=== PATIENT | male | born 1955 | race African-American/Black ===

== ENCOUNTER 2018-05-19 12:01 | Inpatient (IN) | payer MEDICARE, MEDICAID ==
[~2018-05-19] VITALS: Ht 185.4 cm; Wt 82.2 kg
[2018-05-19] MEDS ORDERED: SODIUM CHLORIDE 0.9% 1,000 ML IV ONE (12:19)
[2018-05-19] MEDS ORDERED: PANTOPRAZOLE SODIUM 40 MG/VIAL IV ONE (12:30)
[2018-05-19 13:42] LABS: MEAN CORPUSCULAR HEMOGLOBIN 28.5 pg (28.0-32.0); MEAN CORPUSCULAR VOLUME 89.6 fL (80.0-94.0); MEAN PLATELET VOLUME 9.2 fl (7.4-10.4); PLATELET 323 x1000/uL (130-400); RED BLOOD CELL COUNT 1.63 mill/uL (4.7-6.1)
[2018-05-19 13:46] LABS: CHLORIDE 101 mEq/L (98-107)
[2018-05-19 13:51] LABS: HEMOGLOBIN. 4.7 g/dL (14.0-18.0)
[2018-05-19 13:52] LABS: HEMATOCRIT. 14.6 % (42.0-52.0)
[2018-05-19 13:56] LABS: PARTIAL THROMBOPLASTIN TIME 46.7 sec (23.4-31.0); PROTHROMBIN TIME 93.7 sec (9.1-11.1)
[2018-05-19 14:00] LABS: INR 9.7
[2018-05-19] MEDS ORDERED: DEXTROSE 50% WATER 50ML SYRINGE IV ONE (14:15)
[2018-05-19] MEDS ORDERED: INSULIN REGULAR (HUMULIN R) 300UNITS/3ML IV ONE (14:15)
[2018-05-19] MEDS ORDERED: PHYTONADIONE 10MG/ML AMP SUBCUT ONE (14:15)
[2018-05-19] MEDS ORDERED: SODIUM BICARBONATE 8.4% 1 MEQ/ML 50ML SYR IV ONE (14:15)
[2018-05-19] MEDS ORDERED: SODIUM POLYSTYRENE SULFONATE 15 G/60 ML BOT PO ONE (14:15)
[2018-05-19] MEDS ORDERED: ALBUTEROL (0.083%) 2.5MG/3ML NEB HHN ONE (14:15)
[2018-05-19 15:34] LABS: PLATELET ESTIMATE NORMAL
[2018-05-19] MEDS ORDERED: DIPHENHYDRAMINE 50MG/ML VIAL IV PRN (17:30)
[2018-05-19] MEDS ORDERED: ONDANSETRON HCL 4MG/2ML INJ IV PRN (17:30)
[2018-05-19 18:25] VITALS: BP 143/47
[2018-05-19 18:30] VITALS: BP 143/47
[2018-05-19 18:51] VITALS: BP 120/35
[2018-05-19] MEDS ORDERED: SODIUM CHLORIDE 0.9% 1,000 ML IV SCH (19:30)
[2018-05-19 20:00] VITALS: BP 156/29
[2018-05-19 21:36] LABS: HEMOGLOBIN 4.8 g/dL (14.0-18.0)
[2018-05-19 21:55] LABS: INR 4.2
[2018-05-19 22:00] VITALS: BP 126/28
[2018-05-19] MEDS: DEXT 5%/0.45% NACL 1000ML 1,000 ML IV SCH (22:09)
[2018-05-19] MEDS: PANTOPRAZOLE SODIUM 40 MG/VIAL IV SCH (22:10)
[2018-05-19] MEDS: OXYCODONE HCL/ACETAMINOPHEN 5/325MG TABLET PO PRN (22:57)
[2018-05-20] VITALS (17 sets, daily range): BP systolic 104–147; BP diastolic 33–92
[2018-05-20 06:06] LABS: BASOPHILS % 1.3 % (0.0-2.0); EOSINOPHILS % 1.4 % (0.0-5.0); LYMPHOCYTES % 17.4 % (20.0-50.0); MEAN CORPUSCULAR HEMOGLOBIN 29.4 pg (28.0-32.0); MEAN CORPUSCULAR VOLUME 88.3 fL (80.0-94.0); MEAN PLATELET VOLUME 9.2 fl (7.4-10.4); MONOCYTES % 12.1 % (2.0-8.0); NEUTROPHILS % 67.8 % (40.0-76.0); PLATELET 240 x1000/uL (130-400); RED BLOOD CELL COUNT 2.04 mill/uL (4.7-6.1); RED CELL DISTRIBUTION WIDTH 15.3 % (11.6-14.6)
[2018-05-20 06:08] LABS: INR 3.6; PROTHROMBIN TIME 35.6 sec (9.1-11.1)
[2018-05-20] MEDS: PANTOPRAZOLE SODIUM 40 MG/VIAL IV SCH ×2 (07:54→22:05)
[2018-05-20] MEDS ORDERED: BACTERIOSTATIC SODIUM CHLORIDE 0.9% 30ML VIAL IJ ONE (11:36)
[2018-05-20 13:18] LABS: HEMOGLOBIN 5.3 g/dL (14.0-18.0)
[2018-05-20] MEDS ORDERED: HEPARIN 1000 UNITS/ML 10ML ONE (13:22)
[2018-05-20] MEDS ORDERED: SIMETHICONE 40 MG/0.6 ML 30ML ONE (13:58)
[2018-05-20] MEDS ORDERED: MORPHINE SULFATE 4 MG/ML CPJ (NOT FOR IM USE) IV PRN (14:15)
[2018-05-20] MEDS ORDERED: MIDAZOLAM HCL 5 MG/5 ML VIAL ONE (15:07)
[2018-05-20] MEDS ORDERED: FENTANYL CITRATE/PF 50MCG/ML 2ML VIAL ONE (15:07)
[2018-05-20] MEDS ORDERED: MIDAZOLAM HCL 5 MG/5 ML VIAL IV PRN (15:09)
[2018-05-20] MEDS ORDERED: FENTANYL CITRATE/PF 50MCG/ML 2ML VIAL IV PRN (15:10)
[2018-05-20] MEDS ORDERED: DEXTROSE 50% WATER 50ML SYRINGE IV PRN (17:00)
[2018-05-20] MEDS: INSULIN LISPRO 100 UNITS/ML SUBCUT SCH ×2 (17:20→21:00)
[2018-05-20] MEDS: DEXT 5%/0.45% NACL 1000ML 1,000 ML IV SCH (17:45)
[2018-05-20] MEDS: BLOOD SUGAR DIAGNOSTIC STRIP TEST SCH (21:00)
[2018-05-20 21:43] LABS: HEMATOCRIT 22.4 % (42.0-52.0); HEMOGLOBIN 7.8 g/dL (14.0-18.0)
[2018-05-21] VITALS (18 sets, daily range): BP systolic 115–194; BP diastolic 39–116
[2018-05-21 03:01] LABS: HEMOGLOBIN 7.2 g/dL (14.0-18.0)
[2018-05-21 04:49] LABS: HEMATOCRIT 20.8 % (42.0-52.0)
[2018-05-21] MEDS: BLOOD SUGAR DIAGNOSTIC STRIP TEST SCH ×4 (06:34→20:47)
[2018-05-21] MEDS: INSULIN LISPRO 100 UNITS/ML SUBCUT SCH ×4 (07:20→20:47)
[2018-05-21 07:48] LABS: INR 1.5; PROTHROMBIN TIME 14.5 sec (9.1-11.1)
[2018-05-21 10:00] LABS: HEMATOCRIT 21.5 % (42.0-52.0); HEMOGLOBIN 7.3 g/dL (14.0-18.0); MEAN CORPUSCULAR HEMOGLOBIN 30.1 pg (28.0-32.0); MEAN CORPUSCULAR VOLUME 89.5 fL (80.0-94.0); PLATELET 230 x1000/uL (130-400); RED BLOOD CELL COUNT 2.41 mill/uL (4.7-6.1); RED CELL DISTRIBUTION WIDTH 15.8 % (11.6-14.6)
[2018-05-21] MEDS: PANTOPRAZOLE SODIUM 40 MG/VIAL IV SCH ×2 (10:00→21:00)
[2018-05-21] MEDS: OXYCODONE HCL/ACETAMINOPHEN 5/325MG TABLET PO PRN ×2 (10:54→21:08)
[2018-05-21 10:56] LABS: BG BASE EXCESS -0.8 mmol/L (-2.0-2.0); BG CARBOXYHEMOGLOBIN 1.5 % (0.5-1.5); BG DEOXYHEMOGLOBIN 3.4 % (0.0-5.0); BG FRACTION INSPIRED OXYGEN 21; BG HCO3 ACT 23.1 mmol/L (22.0-26.0); BG METHEMOGLOBIN 0.3 % (0.0-1.5); BG OXYGEN SATURATION 96.5 % (92.0-98.5); BG OXYHEMOGLOBIN 94.8 % (94.0-97.0); BG PCO2 34.5 mmHg (35.0-45.0); BG PH 7.443 (7.350-7.450); BG PO2 93.1 mmHg (75.0-100.0); BG SAMPLE SITE RIGHT RADIAL; BG TOTAL HEMOGLOBIN 7.7 g/dL (12.0-18.0); BG VENT MODE ROOM AIR
[2018-05-21 10:56] LABS: HEPATITIS B SURFACE ANTIGEN NEGATIVE
[2018-05-21 11:24] LABS: HEPATITIS A AB IGM NEGATIVE (NEGATIVE)
[2018-05-21 12:13] LABS: CHLORIDE 110 mEq/L (98-107)
[2018-05-21 12:33] LABS: HDL CHOLESTEROL 22 mg/dL (40-59); LDL CHOLESTEROL 42 mg/dL (5-100); PHOSPHORUS 3.2 mg/dL (2.5-4.9)
[2018-05-21] MEDS ORDERED: DOCU-138 PO (23:08)
[2018-05-21] MEDS ORDERED: METO-293 PO (23:08)
[2018-05-21] MEDS ORDERED: ATOR10TA69 PO (23:08)
[2018-05-21] MEDS ORDERED: WARF5TAB76 PO (23:08)
[2018-05-21] MEDS ORDERED: GABA-529 PO (23:08)
[2018-05-21] MEDS ORDERED: DILT120C51 PO (23:08)
[2018-05-22] VITALS (12 sets, daily range): BP systolic 120–166; BP diastolic 39–88
[2018-05-22 01:07] LABS: HEMATOCRIT 24.4 % (42.0-52.0); HEMOGLOBIN 8.4 g/dL (14.0-18.0); MEAN CORPUSCULAR HEMOGLOBIN 30.8 pg (28.0-32.0); MEAN CORPUSCULAR VOLUME 89.7 fL (80.0-94.0); PLATELET 211 x1000/uL (130-400); RED BLOOD CELL COUNT 2.72 mill/uL (4.7-6.1); RED CELL DISTRIBUTION WIDTH 15.9 % (11.6-14.6)
[2018-05-22] MEDS: BLOOD SUGAR DIAGNOSTIC STRIP TEST SCH ×4 (07:14→20:27)
[2018-05-22] MEDS: INSULIN LISPRO 100 UNITS/ML SUBCUT SCH ×4 (07:14→20:27)
[2018-05-22 08:20] LABS: HEMATOCRIT 25.8 % (42.0-52.0); HEMOGLOBIN 8.8 g/dL (14.0-18.0); MEAN CORPUSCULAR HEMOGLOBIN 30.5 pg (28.0-32.0); MEAN CORPUSCULAR VOLUME 90.2 fL (80.0-94.0); PLATELET 226 x1000/uL (130-400); RED BLOOD CELL COUNT 2.87 mill/uL (4.7-6.1); RED CELL DISTRIBUTION WIDTH 15.9 % (11.6-14.6)
[2018-05-22 08:25] LABS: INR 1.2; PROTHROMBIN TIME 12.4 sec (9.1-11.1)
[2018-05-22] MEDS: NEOMY SULF/BACITRAC ZN/POLY OINT 28GM TOP SCH (09:00)
[2018-05-22] MEDS: PANTOPRAZOLE SODIUM 40 MG/VIAL IV SCH ×2 (10:00→21:25)
[2018-05-22] MEDS: CLONIDINE 0.1MG TABLET PO PRN ×2 (15:14→22:47)
[2018-05-22] MEDS: OXYCODONE HCL/ACETAMINOPHEN 5/325MG TABLET PO PRN (15:14)
[2018-05-22 15:26] LABS: BASOPHILS % 0.5 % (0.0-2.0); HEMATOCRIT. 26.3 % (42.0-52.0); HEMOGLOBIN. 8.8 g/dL (14.0-18.0); LYMPHOCYTES % 12.7 % (20.0-50.0); MEAN CORPUSCULAR VOLUME 89.9 fL (80.0-94.0); MEAN PLATELET VOLUME 8.4 fl (7.4-10.4); NEUTROPHILS % 69.8 % (40.0-76.0); PLATELET 215 x1000/uL (130-400); RED BLOOD CELL COUNT 2.93 mill/uL (4.7-6.1); RED CELL DISTRIBUTION WIDTH 15.8 % (11.6-14.6)
[2018-05-22] MEDS ORDERED: WARFARIN SODIUM 5MG TABLET PO SCH (18:00)
[2018-05-23] VITALS (12 sets, daily range): BP systolic 110–166; BP diastolic 41–85
[2018-05-23] MEDS: INSULIN LISPRO 100 UNITS/ML SUBCUT SCH ×4 (07:08→20:42)
[2018-05-23] MEDS: BLOOD SUGAR DIAGNOSTIC STRIP TEST SCH ×4 (07:08→20:42)
[2018-05-23 08:04] LABS: INR 1.3
[2018-05-23 09:26] LABS: BASOPHILS % 0.9 % (0.0-2.0); EOSINOPHILS % 4.8 % (0.0-5.0); HEMOGLOBIN. 8.8 g/dL (14.0-18.0); LYMPHOCYTES % 16.9 % (20.0-50.0); MEAN CORPUSCULAR HEMOGLOBIN 30.2 pg (28.0-32.0); MEAN CORPUSCULAR VOLUME 89.2 fL (80.0-94.0); MEAN PLATELET VOLUME 8.6 fl (7.4-10.4); MONOCYTES % 14.8 % (2.0-8.0); NEUTROPHILS % 62.6 % (40.0-76.0); PLATELET 232 x1000/uL (130-400); RED BLOOD CELL COUNT 2.92 mill/uL (4.7-6.1); RED CELL DISTRIBUTION WIDTH 15.9 % (11.6-14.6)
[2018-05-23 09:28] LABS: INR 1.2
[2018-05-23] MEDS: PANTOPRAZOLE SODIUM 40 MG/VIAL IV SCH ×2 (12:52→21:44)
[2018-05-23] MEDS: CLONIDINE 0.1MG TABLET PO PRN (13:00)
[2018-05-23] MEDS ORDERED: WARFARIN SODIUM 5MG TABLET PO SCH (18:00)
[2018-05-24] VITALS (13 sets, daily range): BP systolic 105–180; BP diastolic 61–83
[2018-05-24] MEDS: CLONIDINE 0.1MG TABLET PO PRN (04:54)
[2018-05-24 06:17] LABS: INR 1.2
[2018-05-24 06:28] LABS: HEMATOCRIT. 25.6 % (42.0-52.0); HEMOGLOBIN. 8.6 g/dL (14.0-18.0); MEAN CORPUSCULAR HEMOGLOBIN 30.3 pg (28.0-32.0); MEAN CORPUSCULAR VOLUME 89.7 fL (80.0-94.0); MEAN PLATELET VOLUME 9.1 fl (7.4-10.4); PLATELET 244 x1000/uL (130-400); RED BLOOD CELL COUNT 2.85 mill/uL (4.7-6.1); RED CELL DISTRIBUTION WIDTH 16.2 % (11.6-14.6)
[2018-05-24] MEDS: INSULIN LISPRO 100 UNITS/ML SUBCUT SCH ×4 (06:31→21:00)
[2018-05-24] MEDS: BLOOD SUGAR DIAGNOSTIC STRIP TEST SCH ×4 (06:31→21:12)
[2018-05-24] MEDS: PANTOPRAZOLE SODIUM 40 MG/VIAL IV SCH ×2 (09:06→21:47)
[2018-05-24 09:37] LABS: PLATELET ESTIMATE NORMAL
[2018-05-24] MEDS: ENOXAPARIN 100MG/ML SYR SUBCUT SCH (15:15)
[2018-05-24] MEDS ORDERED: WARFARIN SODIUM 5MG TABLET PO SCH (18:00)
[2018-05-24] MEDS: DOCUSATE SODIUM 250MG CAPSULE PO SCH (21:47)
[2018-05-25] VITALS (12 sets, daily range): BP systolic 114–164; BP diastolic 57–98
[2018-05-25] MEDS: BLOOD SUGAR DIAGNOSTIC STRIP TEST SCH ×4 (06:50→21:00)
[2018-05-25] MEDS: INSULIN LISPRO 100 UNITS/ML SUBCUT SCH ×4 (07:20→21:00)
[2018-05-25 07:40] LABS: INR 1.2; PROTHROMBIN TIME 12.4 sec (9.1-11.1)
[2018-05-25 07:43] LABS: EOSINOPHILS % 4.2 % (0.0-5.0); HEMATOCRIT. 28.1 % (42.0-52.0); HEMOGLOBIN. 9.4 g/dL (14.0-18.0); LYMPHOCYTES % 23.7 % (20.0-50.0); MEAN CORPUSCULAR HEMOGLOBIN 30.1 pg (28.0-32.0); MEAN CORPUSCULAR VOLUME 89.8 fL (80.0-94.0); MEAN PLATELET VOLUME 9.2 fl (7.4-10.4); NEUTROPHILS % 57.1 % (40.0-76.0); PLATELET 276 x1000/uL (130-400); RED BLOOD CELL COUNT 3.13 mill/uL (4.7-6.1); RED CELL DISTRIBUTION WIDTH 16.2 % (11.6-14.6)
[2018-05-25] MEDS: DOCUSATE SODIUM 250MG CAPSULE PO SCH ×2 (08:48→17:58)
[2018-05-25] MEDS: ENOXAPARIN 100MG/ML SYR SUBCUT SCH (08:49)
[2018-05-25] MEDS: PANTOPRAZOLE SODIUM 40 MG/VIAL IV SCH ×2 (10:58→22:05)
[2018-05-25] MEDS ORDERED: HEPARIN 25,000 UNITS PREMIX 500 ML IV SCH (13:15)
[2018-05-25] MEDS ORDERED: HEPARIN BOLUS PRN aPTT <30 IV (17:00)
[2018-05-25] MEDS ORDERED: WARFARIN SODIUM 5MG TABLET PO SCH (18:00)
[2018-05-25] MEDS: HEPARIN 25,000 UNITS PREMIX 500 ML IV SCH (18:03)
[2018-05-26] VITALS (13 sets, daily range): BP systolic 137–173; BP diastolic 52–92
[2018-05-26 04:10] LABS: INR 1.3; PARTIAL THROMBOPLASTIN TIME 33.4 sec (23.4-31.0); PROTHROMBIN TIME 13.3 sec (9.1-11.1)
[2018-05-26] MEDS: HEPARIN BOLUS PRN aPTT 30-44 IV (04:51)
[2018-05-26] MEDS: BLOOD SUGAR DIAGNOSTIC STRIP TEST SCH ×4 (06:56→20:18)
[2018-05-26] MEDS: INSULIN LISPRO 100 UNITS/ML SUBCUT SCH ×4 (06:56→20:32)
[2018-05-26] MEDS: PANTOPRAZOLE SODIUM 40 MG/VIAL IV SCH ×2 (08:49→20:18)
[2018-05-26] MEDS: NEOMY SULF/BACITRAC ZN/POLY OINT 28GM TOP SCH (09:00)
[2018-05-26] MEDS: DOCUSATE SODIUM 250MG CAPSULE PO SCH ×2 (09:08→17:00)
[2018-05-26 09:22] LABS: HEMATOCRIT 28.1 % (42.0-52.0); HEMOGLOBIN 9.3 g/dL (14.0-18.0); MEAN CORPUSCULAR HEMOGLOBIN 29.6 pg (28.0-32.0); MEAN CORPUSCULAR VOLUME 89.6 fL (80.0-94.0); PLATELET 294 x1000/uL (130-400); RED BLOOD CELL COUNT 3.14 mill/uL (4.7-6.1); RED CELL DISTRIBUTION WIDTH 16.1 % (11.6-14.6)
[2018-05-26] MEDS ORDERED: WARFARIN SODIUM 7.5MG TABLET PO NR (18:00)
[2018-05-27] VITALS (11 sets, daily range): BP systolic 105–168; BP diastolic 54–83
[2018-05-27] MEDS: BLOOD SUGAR DIAGNOSTIC STRIP TEST SCH ×4 (05:15→21:00)
[2018-05-27] MEDS: INSULIN LISPRO 100 UNITS/ML SUBCUT SCH ×4 (05:15→21:57)
[2018-05-27 06:00] LABS: BASOPHILS % 1.1 % (0.0-2.0); EOSINOPHILS % 2.5 % (0.0-5.0); HEMATOCRIT. 27.6 % (42.0-52.0); HEMOGLOBIN. 9.4 g/dL (14.0-18.0); LYMPHOCYTES % 19.6 % (20.0-50.0); MEAN CORPUSCULAR HEMOGLOBIN 30.4 pg (28.0-32.0); MEAN CORPUSCULAR VOLUME 88.7 fL (80.0-94.0); MEAN PLATELET VOLUME 9.2 fl (7.4-10.4); MONOCYTES % 14.2 % (2.0-8.0); NEUTROPHILS % 62.6 % (40.0-76.0); PLATELET 295 x1000/uL (130-400); RED BLOOD CELL COUNT 3.11 mill/uL (4.7-6.1); RED CELL DISTRIBUTION WIDTH 15.9 % (11.6-14.6)
[2018-05-27 06:01] LABS: INR 1.5; PROTHROMBIN TIME 15.2 sec (9.1-11.1)
[2018-05-27 08:02] LABS: INR 1.5; PROTHROMBIN TIME 15.4 sec (9.1-11.1)
[2018-05-27] MEDS ORDERED: WARFARIN SODIUM 7.5MG TABLET PO SCH (08:30)
[2018-05-27] MEDS: NEOMY SULF/BACITRAC ZN/POLY OINT 28GM TOP SCH (09:00)
[2018-05-27] MEDS: PANTOPRAZOLE SODIUM 40 MG/VIAL IV SCH ×2 (09:28→22:38)
[2018-05-27] MEDS: DOCUSATE SODIUM 250MG CAPSULE PO SCH (09:28)
[2018-05-27] MEDS ORDERED: LACTULOSE 20G/30ML UDC PO SCH (14:00)
[2018-05-27] MEDS: DOCUSATE SODIUM SUGAR FREE 100MG/10ML UDC NG SCH (14:00)
[2018-05-27 15:38] LABS: INR 1.5; PARTIAL THROMBOPLASTIN TIME 35.2 sec (23.4-31.0); PROTHROMBIN TIME 15.4 sec (9.1-11.1)
[2018-05-27] MEDS: HEPARIN BOLUS PRN aPTT 30-44 IV (17:09)
[2018-05-27] MEDS: HEPARIN 25,000 UNITS PREMIX 500 ML IV SCH (20:29)
[2018-05-28] VITALS: BP 132/70
[2018-05-28 04:00] VITALS: BP 146/53
[2018-05-28 05:00] LABS: HEMATOCRIT. 28.7 % (42.0-52.0); HEMOGLOBIN. 9.7 g/dL (14.0-18.0); MEAN CORPUSCULAR HEMOGLOBIN 29.9 pg (28.0-32.0); MEAN CORPUSCULAR VOLUME 88.8 fL (80.0-94.0); MEAN PLATELET VOLUME 9.7 fl (7.4-10.4); PLATELET 300 x1000/uL (130-400); RED BLOOD CELL COUNT 3.24 mill/uL (4.7-6.1); RED CELL DISTRIBUTION WIDTH 15.7 % (11.6-14.6)
[2018-05-28 05:03] LABS: INR 1.9; PARTIAL THROMBOPLASTIN TIME 57.9 sec (23.4-31.0); PROTHROMBIN TIME 19.1 sec (9.1-11.1)
[2018-05-28 06:46] LABS: PLATELET ESTIMATE NORMAL
[2018-05-28] MEDS: BLOOD SUGAR DIAGNOSTIC STRIP TEST SCH ×2 (06:54→12:20)
[2018-05-28] MEDS: INSULIN LISPRO 100 UNITS/ML SUBCUT SCH ×2 (07:50→12:50)
[2018-05-28 08:00] VITALS: BP 161/38
[2018-05-28] MEDS: NEOMY SULF/BACITRAC ZN/POLY OINT 28GM TOP SCH (09:00)
[2018-05-28] MEDS: DOCUSATE SODIUM SUGAR FREE 100MG/10ML UDC NG SCH (09:22)
[2018-05-28] MEDS: PANTOPRAZOLE SODIUM 40 MG/VIAL IV SCH (09:22)
[2018-05-28 11:20] LABS: PROTHROMBIN TIME 19.6 sec (9.1-11.1)
[2018-05-28 12:00] VITALS: BP 46/70
[2018-05-28 16:00] VITALS: BP 140/72
[2018-05-28 16:08] VITALS: BP 146/70
[2018-05-28] MEDS ORDERED: WARFARIN SODIUM 5MG TABLET PO SCH (18:00)
== END 2018-05-28 18:40 | disposition home or self-care (01) | DRG 377 ==
LOC: ER 12:38 → 3WST 14:27 → ENRESERV 15:51 → 6WST 05-27 15:14
PROVIDERS: ADMIT Internal Medicine; ATTEND Internal Medicine
PROC: 30233N1 Transfusion of Nonautologous Red Blood Cells into Peripheral Vein, Percutaneous Approach (ICD-10-PCS; principal; 2018-05-19)
PROC: 05H933Z Insertion of Infusion Device into Right Brachial Vein, Percutaneous Approach (ICD-10-PCS; 2018-05-19)
PROC: B54MZZA Ultrasonography of Right Upper Extremity Veins, Guidance (ICD-10-PCS; 2018-05-19)
PROC: 5A1D70Z Performance of Urinary Filtration, Intermittent, Less than 6 Hours Per Day (ICD-10-PCS; 2018-05-19)
PROC: 30233L1 Transfusion of Nonautologous Fresh Plasma into Peripheral Vein, Percutaneous Approach (ICD-10-PCS; 2018-05-19)
PROC: 30233K1 Transfusion of Nonautologous Frozen Plasma into Peripheral Vein, Percutaneous Approach (ICD-10-PCS; 2018-05-19)
PROC: 0DJ08ZZ Inspection of Upper Intestinal Tract, Via Natural or Artificial Opening Endoscopic (ICD-10-PCS; 2018-05-20)
PROC: 5A1D70Z Performance of Urinary Filtration, Intermittent, Less than 6 Hours Per Day (ICD-10-PCS; 2018-05-20)
PROC: 5A1D70Z Performance of Urinary Filtration, Intermittent, Less than 6 Hours Per Day (ICD-10-PCS; 2018-05-22)
PROC: 5A1D70Z Performance of Urinary Filtration, Intermittent, Less than 6 Hours Per Day (ICD-10-PCS; 2018-05-26)
DX: K92.2 Gastrointestinal hemorrhage, unspecified (principal); I50.43 Acute on chronic combined systolic (congestive) and diastolic (congestive) heart failure; N18.6 End stage renal disease; E46 Unspecified protein-calorie malnutrition; D68.9 Coagulation defect, unspecified; E87.2 Acidosis; I13.2 Hypertensive heart and chronic kidney disease with heart failure and with stage 5 chronic kidney disease, or end stage renal disease; I69.351 Hemiplegia and hemiparesis following cerebral infarction affecting right dominant side; Z99.2 Dependence on renal dialysis; D64.9 Anemia, unspecified; B19.20 Unspecified viral hepatitis C without hepatic coma; T45.515A Adverse effect of anticoagulants, initial encounter; E11.22 Type 2 diabetes mellitus with diabetic chronic kidney disease; E11.42 Type 2 diabetes mellitus with diabetic polyneuropathy; E78.00 Pure hypercholesterolemia, unspecified; E78.5 Hyperlipidemia, unspecified; E87.5 Hyperkalemia; I25.10 Atherosclerotic heart disease of native coronary artery without angina pectoris; K29.80 Duodenitis without bleeding; K59.00 Constipation, unspecified; Z79.01 Long term (current) use of anticoagulants; Z82.49 Family history of ischemic heart disease and other diseases of the circulatory system; I25.2 Old myocardial infarction; Z83.3 Family history of diabetes mellitus; Z89.422 Acquired absence of other left toe(s); Z95.2 Presence of prosthetic heart valve; Z88.0 Allergy status to penicillin; Z88.6 Allergy status to analgesic agent; Z88.8 Allergy status to other drugs, medicaments and biological substances; Z68.23 Body mass index [BMI] 23.0-23.9, adult; Y92.89 Other specified places as the place of occurrence of the external cause
CPT/HCPCS: 36415; 36430; 36569; 36600; 71045; 76937; 78278; 80048; 80061; 82375; 82805; 82962; 83036; 83735; 84100; 84443; 84484; 85014; 85018; 85027; 86705; 86709; 86803; 86850; 86900; 86920; 86927; 87340; 93005; 93306; 93970; 94644; 96374; 96375; 97162; 99291; A9560; C1725; C9113; J1644; J1650; J1815; J2250; J3010; J3430; J3490; J7030; J7040; J7050; J7611; P9016; P9017